=== PATIENT | male | born 1940 | race Caucasian/White ===

== ENCOUNTER 2018-11-28 20:30 | Inpatient (IN) | payer OTHER ==
[~2018-11-28] VITALS: Ht 162.6 cm; Wt 64.6 kg
[2018-11-28 20:45] VITALS: Ht 162.6 cm; Wt 64.6 kg
[2018-11-28 21:39] LABS: RED CELL DISTRIBUTION WIDTH 15.6 % (11.5-14.5)
[2018-11-28 21:40] LABS: PLATELET COUNT 40 x10^3mcL (130-400)
[2018-11-28 21:43] LABS: ALKALINE PHOSPHATASE 83 U/L (46-116); ALT/SGPT 24 U/L (16-63); AST/SGOT 16 U/L (15-37); BILIRUBIN TOTAL 1.3 mg/dL (0.20-1.00); CALCIUM 7.9 mg/dL (8.5-10.1); CHLORIDE SERUM 100 mmol/L (98-107); CREATININE SERUM 3.4 mg/dL (0.7-1.3); GLUCOSE SERUM 115 mg/dL (74-106); MAGNESIUM 2.3 mg/dL (1.8-2.4); PHOSPHOROUS 3.5 mg/dL (2.5-4.9); POTASSIUM SERUM 3.3 mmol/L (3.5-5.1); SODIUM SERUM 133 mmol/L (136-145)
[2018-11-28 21:59] LABS: ALBUMIN 1.9 g/dL (3.4-5.0); CHOLESTEROL 81 mg/dL (<200); HDL CHOLESTEROL 14 mg/dL (40-60); TOTAL PROTEIN, SERUM 5.8 g/dL (6.4-8.2)
[2018-11-28 22:04] LABS: BAND NEUTROPHIL 5 % (0-10); BASOPHIL 0 % (0-2); MONOCYTE 11 % (0-7); SEGMENTED NEUTROPHILS 78 % (37-75)
[2018-11-28 22:05] LABS: rbc morphology (normal/abnorm) ABNORMAL (NORMAL)
[2018-11-28 22:57] LABS: microscopic required? YES
[2018-11-28 22:58] LABS: urine erythrocyte 1+ (NEGATIVE)
[2018-11-29 05:51] LABS: CALCIUM 7.8 mg/dL (8.5-10.1); CARBON DIOXIDE 15.6 mmol/L (21-32); CHLORIDE SERUM 106 mmol/L (98-107); CREATININE SERUM 3.1 mg/dL (0.7-1.3); GLUCOSE SERUM 96 mg/dL (74-106); POTASSIUM SERUM 3.4 mmol/L (3.5-5.1); SODIUM SERUM 138 mmol/L (136-145)
[2018-11-29] MEDS ORDERED: ZESTRIL20 MG PO (07:37)
[2018-11-29] MEDS ORDERED: COUMADIN1 MG PO (07:37)
[2018-11-29] MEDS ORDERED: LOPERAMIDE HCL2 MG PO (07:37)
[2018-11-29] MEDS ORDERED: NOR10 PO (07:37)
[2018-11-29] MEDS ORDERED: TAMSULOSIN HYD0.4 M1 PO (07:38)
[2018-11-29] MEDS ORDERED: METOPROLOL TART25 M1 PO (07:38)
[2018-11-29] MEDS ORDERED: TYLENOL WITH CO1 TA2 (07:38)
[2018-11-29] MEDS ORDERED: XOPENEX HF0.045 MG/1 INH (07:38)
[2018-11-29 08:11] LABS: RED CELL DISTRIBUTION WIDTH 15.7 % (11.5-14.5)
[2018-11-29 08:12] LABS: PLATELET COUNT 44 x10^3mcL (130-400)
[2018-11-29 11:15] VITALS: BP 99/57
[2018-11-29 11:41] VITALS: BP 107/60
[2018-11-29 13:05] VITALS: BP 124/61
[2018-11-29 13:50] LABS: ATYPICAL LYMPH 5 %; BAND NEUTROPHIL 15 % (0-10); MONOCYTE 5 % (0-7); SEGMENTED NEUTROPHILS 68 % (37-75)
[2018-11-29 13:51] LABS: PLATELET MORPHOLOGY PLATELETS DECREASED; rbc morphology (normal/abnorm) ABNORMAL (NORMAL)
[2018-11-29 17:41] VITALS: BP 120/69
[2018-11-29 21:21] VITALS: BP 113/63
[2018-11-30 05:56] VITALS: BP 135/66
[2018-11-30 06:35] LABS: PLATELET COUNT 68 x10^3mcL (130-400); RED CELL DISTRIBUTION WIDTH 16.1 % (11.5-14.5)
[2018-11-30 06:36] LABS: ALKALINE PHOSPHATASE 89 U/L (46-116); ALT/SGPT 26 U/L (16-63); AST/SGOT 22 U/L (15-37); BILIRUBIN TOTAL 1.27 mg/dL (0.20-1.00); CALCIUM 7.8 mg/dL (8.5-10.1); CHLORIDE SERUM 107 mmol/L (98-107); CREATININE SERUM 2.5 mg/dL (0.7-1.3); GLUCOSE SERUM 98 mg/dL (74-106); PHOSPHOROUS 4.2 mg/dL (2.5-4.9); SODIUM SERUM 144 mmol/L (136-145)
[2018-11-30 06:45] LABS: ALBUMIN 1.7 g/dL (3.4-5.0); TOTAL PROTEIN, SERUM 5.9 g/dL (6.4-8.2)
[2018-11-30 09:35] VITALS: BP 115/63
[2018-11-30 12:44] VITALS: BP 116/62
[2018-11-30 14:18] LABS: BAND NEUTROPHIL 7 % (0-10); BASOPHIL 0 % (0-2); MONOCYTE 10 % (0-7); SEGMENTED NEUTROPHILS 77 % (37-75)
[2018-11-30 14:19] LABS: PLATELET MORPHOLOGY PLATELETS DECREASED; rbc morphology (normal/abnorm) ABNORMAL (NORMAL)
[2018-11-30 16:36] VITALS: BP 118/68
[2018-11-30 21:26] VITALS: BP 120/62
[2018-12-01 05:55] VITALS: BP 141/70
[2018-12-01 06:55] LABS: BASOPHIL % 0.5 % (0-2)
[2018-12-01 07:01] LABS: ALKALINE PHOSPHATASE 94 U/L (46-116); ALT/SGPT 30 U/L (16-63); AST/SGOT 29 U/L (15-37); BILIRUBIN TOTAL 1.22 mg/dL (0.20-1.00); CALCIUM 7.4 mg/dL (8.5-10.1); CARBON DIOXIDE 25.3 mmol/L (21-32); CHLORIDE SERUM 105 mmol/L (98-107); CREATININE SERUM 2.1 mg/dL (0.7-1.3); GLUCOSE SERUM 101 mg/dL (74-106); PHOSPHOROUS 3.2 mg/dL (2.5-4.9); SODIUM SERUM 144 mmol/L (136-145)
[2018-12-01 07:08] LABS: ALBUMIN 1.6 g/dL (3.4-5.0); POTASSIUM SERUM 2.8 mmol/L (3.5-5.1)
[2018-12-01 07:10] LABS: PLATELET COUNT 78 x10^3mcL (130-400); RED CELL DISTRIBUTION WIDTH 15.8 % (11.5-14.5)
[2018-12-01 09:38] VITALS: BP 124/66
[2018-12-01 13:34] VITALS: BP 136/70
[2018-12-01 17:08] VITALS: BP 136/70
[2018-12-01 21:00] VITALS: BP 127/70
[2018-12-02 05:35] VITALS: BP 129/65
[2018-12-02 07:19] LABS: RED CELL DISTRIBUTION WIDTH 14.5 % (11.5-14.5)
[2018-12-02 07:28] LABS: CALCIUM 7.2 mg/dL (8.5-10.1); CARBON DIOXIDE 28.9 mmol/L (21-32); CHLORIDE SERUM 102 mmol/L (98-107); CREATININE SERUM 1.7 mg/dL (0.7-1.3); GLUCOSE SERUM 97 mg/dL (74-106); POTASSIUM SERUM 3.1 mmol/L (3.5-5.1); SODIUM SERUM 142 mmol/L (136-145)
[2018-12-02 07:31] LABS: PLATELET COUNT 115 x10^3mcL (130-400)
[2018-12-02 09:08] VITALS: BP 120/71
[2018-12-02 10:29] VITALS: BP 120/71
[2018-12-02 11:41] LABS: BAND NEUTROPHIL 10 % (0-10); BASOPHIL 0 % (0-2); MONOCYTE 7 % (0-7); SEGMENTED NEUTROPHILS 67 % (37-75)
[2018-12-02 11:42] LABS: PLATELET MORPHOLOGY LARGE PLATELET SEEN; rbc morphology (normal/abnorm) ABNORMAL (NORMAL); tear drop cell (dacryocyte) 1+
== END 2018-12-02 13:06 | disposition other institution (70) | DRG 683 ==
LOC: ED 20:30 → DU 11-29 00:07
PROVIDERS: Emergency Medicine; Internal Medicine; ADMIT Internal Medicine
DX: N17.9 Acute kidney failure, unspecified (principal); C90.00 Multiple myeloma not having achieved remission; D68.9 Coagulation defect, unspecified; N40.0 Benign prostatic hyperplasia without lower urinary tract symptoms; J45.909 Unspecified asthma, uncomplicated; T45.515A Adverse effect of anticoagulants, initial encounter; G89.29 Other chronic pain; M54.5 Low back pain; I12.9 Hypertensive chronic kidney disease with stage 1 through stage 4 chronic kidney disease, or unspecified chronic kidney disease; E86.0 Dehydration; D63.8 Anemia in other chronic diseases classified elsewhere; N18.4 Chronic kidney disease, stage 4 (severe); M60.9 Myositis, unspecified; D69.59 Other secondary thrombocytopenia; M81.0 Age-related osteoporosis without current pathological fracture; Z68.29 Body mass index [BMI] 29.0-29.9, adult; Y92.89 Other specified places as the place of occurrence of the external cause
CPT/HCPCS: 83880; J1956; J3490; J7050; Q0092

== ENCOUNTER 2020-03-15 08:25 | Inpatient (IN) | payer OTHER, SELFPAY ==
[~2020-03-15] VITALS: Ht 162.6 cm; Wt 61.7 kg
[~2020-03-15 08:25] MED LIST: COUMADIN1 MG PO; LOPERAMIDE HCL2 MG PO; METOPROLOL TART25 M1 PO; NOR10 PO; TAMSULOSIN HYD0.4 M1 PO; TYLENOL WITH CO1 TA2; XOPENEX HF0.045 MG/1 INH; ZESTRIL20 MG PO
[2020-03-15 08:28] VITALS: Ht 162.6 cm; Wt 61.7 kg
[2020-03-15 08:58] LABS: BASOPHIL % 0.5 % (0-2); PLATELET COUNT 154 x10^3mcL (130-400)
[2020-03-15 09:14] LABS: CALCIUM 8.1 mg/dL (8.5-10.1); CARBON DIOXIDE 24.2 mmol/L (21-32); CHLORIDE SERUM 103 mmol/L (98-107); CREATININE SERUM 1.4 mg/dL (0.7-1.3); GLUCOSE SERUM 108 mg/dL (74-106); POTASSIUM SERUM 3.2 mmol/L (3.5-5.1); SODIUM SERUM 138 mmol/L (136-145)
[2020-03-15 09:19] LABS: ALBUMIN 3.6 g/dL (3.4-5.0); ALKALINE PHOSPHATASE 81 U/L (46-116); ALT/SGPT 23 U/L (16-63); AST/SGOT 13 U/L (15-37); BILIRUBIN TOTAL 0.5 mg/dL (0.20-1.00); C REACTIVE PROTEIN 1.3 mg/dL (<=0.9); LACTIC DEHYDROGENASE (LDH) 173 U/L (100-190); TOTAL PROTEIN, SERUM 7.3 g/dL (6.4-8.2)
[2020-03-15 10:18] LABS: UA SPECIFIC GRAVITY 1.025 (1.005-1.035); microscopic required? YES; urine erythrocyte 3+ (NEGATIVE)
[2020-03-15 12:32] VITALS: BP 146/84
[2020-03-15 16:14] VITALS: BP 159/75
[2020-03-15 17:36] VITALS: BP 170/94
[2020-03-15 20:46] VITALS: BP 150/84
[2020-03-16 05:09] VITALS: BP 152/82
[2020-03-16 07:34] LABS: BASOPHIL % 0.4 % (0-2); PLATELET COUNT 141 x10^3mcL (130-400)
[2020-03-16 07:39] LABS: RED CELL DISTRIBUTION WIDTH 14.9 % (11.5-14.5)
[2020-03-16 07:49] LABS: CALCIUM 8.2 mg/dL (8.5-10.1); CARBON DIOXIDE 23.3 mmol/L (21-32); CHLORIDE SERUM 104 mmol/L (98-107); CREATININE SERUM 1.6 mg/dL (0.7-1.3); GLUCOSE SERUM 93 mg/dL (74-106); POTASSIUM SERUM 3.7 mmol/L (3.5-5.1); SODIUM SERUM 138 mmol/L (136-145)
[2020-03-16 08:10] LABS: T4(THYROXINE) 5.8 ug/dL (4.7-13.3)
[2020-03-16 09:16] LABS: ERYTHROCYTE SED RATE 23 mm/hr (0-20)
[2020-03-16 09:20] VITALS: BP 177/76
[2020-03-16 12:23] VITALS: BP 179/86
[2020-03-16 17:02] VITALS: BP 149/107
[2020-03-16 21:08] VITALS: BP 158/82
[2020-03-17 05:08] LABS: RAPID PLASMA REAGIN Non Reactive (Non Reactive)
[2020-03-17 05:35] VITALS: BP 143/77
[2020-03-17 06:28] LABS: BASOPHIL % 0.4 % (0-2); PLATELET COUNT 142 x10^3mcL (130-400)
[2020-03-17 07:02] LABS: RED CELL DISTRIBUTION WIDTH 14.9 % (11.5-14.5)
[2020-03-17 08:45] VITALS: BP 154/88
[2020-03-17 12:14] VITALS: BP 151/80
[2020-03-17 16:52] VITALS: BP 132/77
[2020-03-17 20:54] VITALS: BP 134/89
[2020-03-18 05:49] VITALS: BP 136/91
[2020-03-18 06:57] LABS: BASOPHIL % 0.3 % (0-2); PLATELET COUNT 131 x10^3mcL (130-400)
[2020-03-18 07:26] LABS: CALCIUM 7.7 mg/dL (8.5-10.1); CARBON DIOXIDE 23.8 mmol/L (21-32); CHLORIDE SERUM 102 mmol/L (98-107); CREATININE SERUM 1.4 mg/dL (0.7-1.3); GLUCOSE SERUM 99 mg/dL (74-106); POTASSIUM SERUM 3.6 mmol/L (3.5-5.1); SODIUM SERUM 136 mmol/L (136-145)
[2020-03-18 08:19] LABS: RED CELL DISTRIBUTION WIDTH 14.7 % (11.5-14.5)
[2020-03-18 08:46] VITALS: BP 148/85
[2020-03-18 12:44] VITALS: BP 155/83
[2020-03-18 17:05] VITALS: BP 137/77
[2020-03-18 21:12] VITALS: BP 124/82
[2020-03-19 05:13] VITALS: BP 155/80
[2020-03-19 06:47] LABS: CALCIUM 7.7 mg/dL (8.5-10.1); CARBON DIOXIDE 19.3 mmol/L (21-32); CHLORIDE SERUM 102 mmol/L (98-107); CREATININE SERUM 1.4 mg/dL (0.7-1.3); GLUCOSE SERUM 91 mg/dL (74-106); POTASSIUM SERUM 3.2 mmol/L (3.5-5.1); SODIUM SERUM 136 mmol/L (136-145)
[2020-03-19 06:52] LABS: ALKALINE PHOSPHATASE 66 U/L (46-116); ALT/SGPT 16 U/L (16-63); AST/SGOT 16 U/L (15-37); BILIRUBIN TOTAL 0.25 mg/dL (0.20-1.00); TOTAL PROTEIN, SERUM 6.6 g/dL (6.4-8.2)
[2020-03-19 07:00] LABS: ALBUMIN 3.1 g/dL (3.4-5.0)
[2020-03-19 07:06] LABS: BASOPHIL % 0.3 % (0-2)
[2020-03-19 07:18] LABS: PLATELET COUNT 120 x10^3mcL (130-400); RED CELL DISTRIBUTION WIDTH 14.6 % (11.5-14.5)
[2020-03-19 07:57] VITALS: BP 147/90
[2020-03-19 17:45] VITALS: BP 156/88
[2020-03-19 21:07] VITALS: BP 119/76
[2020-03-20 05:57] VITALS: BP 126/73
[2020-03-20 08:06] LABS: BASOPHIL % 0.5 % (0-2); RED CELL DISTRIBUTION WIDTH 14.5 % (11.5-14.5)
[2020-03-20 08:24] LABS: PLATELET COUNT 121 x10^3mcL (130-400)
[2020-03-20 08:40] LABS: ALKALINE PHOSPHATASE 66 U/L (46-116); ALT/SGPT 25 U/L (16-63); AST/SGOT 22 U/L (15-37); BILIRUBIN TOTAL 0.22 mg/dL (0.20-1.00); CALCIUM 7.9 mg/dL (8.5-10.1); CARBON DIOXIDE 23.5 mmol/L (21-32); CHLORIDE SERUM 106 mmol/L (98-107); CREATININE SERUM 1.2 mg/dL (0.7-1.3); GLUCOSE SERUM 89 mg/dL (74-106); POTASSIUM SERUM 3.9 mmol/L (3.5-5.1); SODIUM SERUM 138 mmol/L (136-145); TOTAL PROTEIN, SERUM 6.9 g/dL (6.4-8.2)
[2020-03-20 08:42] LABS: ALBUMIN 3.2 g/dL (3.4-5.0)
[2020-03-20 11:42] VITALS: BP 139/79
[2020-03-20 17:20] VITALS: BP 143/77
[2020-03-20 21:16] VITALS: BP 117/66
[2020-03-21 05:55] VITALS: BP 121/77
[2020-03-21 07:44] LABS: BILIRUBIN DIRECT 0.1 mg/dL (0.0-0.2); BILIRUBIN TOTAL 0.2 mg/dL (0.20-1.00); TOTAL PROTEIN, SERUM 6.4 g/dL (6.4-8.2)
[2020-03-21 08:59] VITALS: BP 137/88
[2020-03-21 13:31] VITALS: BP 131/81
[2020-03-21 18:03] VITALS: BP 126/79
[2020-03-21 21:16] VITALS: BP 126/73
[2020-03-22 06:01] VITALS: BP 128/66
[2020-03-22 08:15] LABS: BILIRUBIN DIRECT 0.1 mg/dL (0.0-0.2); BILIRUBIN TOTAL 0.2 mg/dL (0.20-1.00); TOTAL PROTEIN, SERUM 6.3 g/dL (6.4-8.2)
[2020-03-22 08:20] LABS: ALBUMIN 2.9 g/dL (3.4-5.0)
[2020-03-22 08:49] VITALS: BP 148/85
[2020-03-22 13:38] VITALS: BP 115/76
[2020-03-22 14:24] VITALS: BP 115/76
== END 2020-03-22 16:05 | disposition other institution (70) | DRG 177 ==
LOC: ED 08:25 → DU 09:49
PROVIDERS: Emergency Medicine; ADMIT Internal Medicine; ATTEND Internal Medicine
PROC: 30233K1 Transfusion of Nonautologous Frozen Plasma into Peripheral Vein, Percutaneous Approach (ICD-10-PCS; principal; 2020-03-18)
DX: U07.1 COVID-19 (principal); J96.01 Acute respiratory failure with hypoxia; N39.0 Urinary tract infection, site not specified; C90.00 Multiple myeloma not having achieved remission; J45.901 Unspecified asthma with (acute) exacerbation; S02.2XXA Fracture of nasal bones, initial encounter for closed fracture; I10 Essential (primary) hypertension; J45.909 Unspecified asthma, uncomplicated; M81.0 Age-related osteoporosis without current pathological fracture; N40.0 Benign prostatic hyperplasia without lower urinary tract symptoms; W18.39XA Other fall on same level, initial encounter; Y93.89 Activity, other specified; Y92.89 Other specified places as the place of occurrence of the external cause; Y99.8 Other external cause status; Z79.899 Other long term (current) drug therapy; Z79.01 Long term (current) use of anticoagulants
CPT/HCPCS: 36600; 83880; 85378; 86431; 87804; G0378; J0456; J0696; J1650; J3535; J7050; Q0092; U0003-CS